=== PATIENT | male | born 1980 | race Caucasian/White ===

== ENCOUNTER 2016-06-01 19:48 | Emergency (ER) | payer SELFPAY ==
[~2016-06-01] VITALS: Ht 188 cm; Wt 101.1 kg
[~2016-06-01 19:48] MED LIST: CLONAZEPAM1 MG PO; KLONOPIN1 MG PO; LOPRESSOR50 MG PO; METOPROLOL TART50 MG PO
[2016-06-01 19:53] VITALS: BP 145/91
[2016-06-01] MEDS ORDERED: KLONOPIN1 MG PO (20:05)
== END 2016-06-01 20:12 | disposition home or self-care (01) ==
LOC: EME 19:48
DX: Z76.0 Encounter for issue of repeat prescription (principal); F17.200 Nicotine dependence, unspecified, uncomplicated
CPT/HCPCS: 99281; 99283

== ENCOUNTER 2016-08-09 17:32 | Emergency (ER) | payer SELFPAY ==
[~2016-08-09] VITALS: Ht 185.4 cm; Wt 109.9 kg
[2016-08-09 19:52] VITALS: BP 124/87
== END 2016-08-09 19:55 | disposition home or self-care (01) ==
LOC: EME 17:32
DX: F41.1 Generalized anxiety disorder (principal); F43.22 Adjustment disorder with anxiety; F17.200 Nicotine dependence, unspecified, uncomplicated
CPT/HCPCS: 90839; 99281; 99284